=== PATIENT | female | born 1955 | race Two or more races ===

== ENCOUNTER 2023-07-09 08:18 | Emergency (ER) | payer OTHER ==
[~2023-07-09] VITALS: Ht 165.1 cm; Wt 81.8 kg
[2023-07-09 08:20] VITALS: TEMP 98
[2023-07-09] MEDS ORDERED: AMLO-257 PO (08:23)
[2023-07-09] MEDS ORDERED: METO25 PO (08:23)
[2023-07-09] MEDS: HYDROCODONE/ACETAMINOPHEN 5-325 MG TABLET PO ONE (09:35)
[2023-07-09] MEDS ORDERED: TRAM50TA5 PO (10:19)
[2023-07-09 10:35] VITALS: BP 162/79; PULSE 72; RESP 18
== END 2023-07-09 10:41 | disposition home or self-care (01) ==
LOC: EMS 08:21
DX: S42.201A Unspecified fracture of upper end of right humerus, initial encounter for closed fracture (principal); I10 Essential (primary) hypertension; W01.0XXA Fall on same level from slipping, tripping and stumbling without subsequent striking against object, initial encounter; Y93.89 Activity, other specified; Y92.89 Other specified places as the place of occurrence of the external cause; Y99.8 Other external cause status
CPT/HCPCS: 29105; 99284; 73030-TC; 73562-TC; Z7502; Z7610